=== PATIENT | female | born 1990 ===

== ENCOUNTER 2017-04-20 10:24 | Emergency (ER) | payer OTHER ==
--- NOTE | 2017-04-20 11:25 | ED PDOC ---
HPI: Abdomen Time Seen by Provider: 04/20/17 10:49 Chief Complaint (Nursing): Abdominal Pain Chief Complaint (Provider): DUB History Per: Patient Additional Complaint(s): 26 yo female, no PMH, presents to Ed with complaints of heavy vaginal bleeding since March 01. Pt reports that her periods have always been irregular, sometimes she skips months, sometimes she gets her period 2x in 1 month. Pt reports that her period started March 01 now, and some days its only spotting, some days its heavy with clots. (+) associated cramping. Past Medical History Reviewed: Nursing Documentation, Vital Signs - Medical History PMH: No Chronic Diseases - Surgical History Surgical History: No Surg Hx - Family History Family History: States: No Known Family Hx - Living Arrangements Living Arrangements: With Family - Social History Current smoker - smoking cessation education provided: No Alcohol: None Drugs: Denies - Allergies Allergies/Adverse Reactions: Allergies Allergy/AdvReac Type Severity Reaction Status Date / Time No Known Allergies Allergy Verified 04/20/17 10:47 Review of Systems ROS Statement: Except As Marked, All Systems Reviewed And Found Negative Genitourinary Female: Positive for: Vaginal Bleeding Physical Exam - Reviewed Nursing Documentation Reviewed: Yes Vital Signs Reviewed: Yes - Physical Exam Appears: Positive for: Well, Non-toxic, No Acute Distress Head Exam: Positive for: ATRAUMATIC, NORMAL INSPECTION, NORMOCEPHALIC Skin: Positive for: Normal Color, Warm, DRY Eye Exam: Positive for: EOMI, Normal appearance, PERRL ENT: Positive for: Normal ENT Inspection Neck: Positive for: Normal, Painless ROM Cardiovascular/Chest: Positive for: Regular Rate, Rhythm Respiratory: Positive for: CNT, Normal Breath Sounds Gastrointestinal/Abdominal: Positive for: Normal Exam, Bowel Sounds, Soft Pelvic Exam: Positive for: External Exam Normal, Active Bleeding (minimal) Back: Positive for: Normal Inspection Extremity: Positive for: Normal ROM Neurologic/Psych: Positive for: Alert, Oriented - Laboratory Results Result Diagrams: 04/20/17 12:20 04/20/17 12:20 Medical Decision Making Medical Decision Making: IV access established and diagnostics ordered. treatment initiated with Toradol. On re-eval, pt reports that she is resting comfortably. Hgb 13.6 US IMPRESSION: No significant or acute findings to account for/ related to the clinical presentation. Pt educated on results and demonstrated full understanding Causes of DUB discussed at length and OB visit advised. Pt stable for discharge at this time, referred to women's clinic Disposition - Clinical Impression Clinical Impression: DUB (dysfunctional uterine bleeding) - Patient ED Disposition Is Patient to be Admitted: No - Disposition [facility] [Outside] Disposition: Routine/Home Disposition Time: 14:32 Condition: STABLE Instructions: Dysfunctional Uterine Bleeding (ED) Forms: [employer] (Welsh) - POA Present On Arrival: None
[2017-04-20 12:34] LABS: BASO # 0.1 K/uL (0.0-0.2); EOS # 0.3 K/uL (0.0-0.7); EOS % 4.2 % (0.0-4.0); HEMOGLOBIN 13.6 g/dL (12.0-16.0); LYMPH # 2.9 K/uL (1.0-4.3); LYMPH % 43.6 % (20.0-40.0); MEAN CELL VOLUME 89.7 fl (81.0-99.0); MEAN CORPUSCULAR HGB CONC 33.5 g/dL (33.0-37.0); MONO # 0.5 K/uL (0.0-0.8); MONO % 7.2 % (0.0-10.0); NRBC % 0.2 % (0.0-0.0); RBC 4.53 Mil/uL (3.80-5.20); RED CELL DISTRIBUTION WIDTH 12.8 % (11.5-14.5); WHITE BLOOD COUNT 6.7 K/uL (4.8-10.8)
[2017-04-20 12:43] LABS: ALB/GLOB RATIO 1.4 (1.0-2.1); ALBUMIN 4.2 g/dL (3.5-5.0); ALT/SGPT 71 U/L (9-52); AST/SGOT 28 U/L (14-36); BLOOD UREA NITROGEN 14 mg/dl (7-17); CALCIUM 9.3 mg/dL (8.4-10.2); GFR AFRICAN-AMERICAN > 60; GFR NON-AFRICAN AMERICAN > 60
--- NOTE | 2017-04-20 14:02 | US ---
HISTORY: Pain and bleeding 1 month duration. LMP 03/04/2017. Menstrual status: Irregular cycles. COMPARISON: None available. TECHNIQUE: Transabdominal only. Real-time technique with 2D, duplex and color Doppler FINDINGS: UTERUS: Measures 3.4 x 3.6 x 7.4 cm. Normal in size and appearance. No fibroid or other mass lesion seen. ENDOMETRIUM: Measures 11.3 mm in diameter. No ultrasound findings to suggest gestational sac, fluid, debris, mass or polyp or other pathologic process within the endometrium. CERVIX: No cervical abnormality identified. RIGHT OVARY: Measures 2.3 x 2.6 cm. No solid mass. Normal flow. LEFT OVARY: Measures 2.1 x 2.4 cm. No solid mass. Normal flow. FREE FLUID: No significant free fluid noted. OTHER FINDINGS: None. IMPRESSION: No significant or acute findings to account for/ related to the clinical presentation.
== END 2017-04-20 14:35 | disposition home or self-care (01) ==
LOC: H.ER 10:24
DX: N93.8 Other specified abnormal uterine and vaginal bleeding (principal)